=== PATIENT | female | born 1995 | race Caucasian/White ===

== ENCOUNTER → 2016-12-02 | Outpatient (CLI) | payer OTHER | LOC: FIMAGING 12:17 | PROVIDERS: ATTEND Nurse Practitioner Adult Health | DX: R05 Cough (principal); J45.909 Unspecified asthma, uncomplicated ==

== ENCOUNTER → 2017-02-23 | Outpatient (CLI) | payer OTHER | LOC: FIMAGING 10:17 → EDSTATUS 10:19 | PROVIDERS: ATTEND Nurse Practitioner Adult Health | DX: R05 Cough (principal) ==

== ENCOUNTER → 2017-10-27 | Outpatient (CLI) | payer OTHER ==
[~2017-10-27] MED LIST: IOPAMIDOL (ISOVUE-300) 150 ML BTL ONE
== END ==
LOC: FIMAGING 08:46
PROVIDERS: ATTEND Physician Assistant Medical
DX: R10.9 Unspecified abdominal pain (principal)
CPT/HCPCS: Q9967